=== PATIENT | male | born 1960 ===

== ENCOUNTER → 2019-02-24 19:31 | Outpatient (REF) | payer OTHER, SELFPAY ==
[2019-02-24 20:07] LABS: Estimated Glomerular Filt Rate > 60.0 mL/min (>60)
== END ==
LOC: LAB 19:31
PROVIDERS: Visit Provider Family Medicine
DX: R19.00 Intra-abdominal and pelvic swelling, mass and lump, unspecified site (principal)
CPT/HCPCS: 36415; 82565